=== PATIENT | male | born 1985 | race African-American/Black ===

== ENCOUNTER 2017-12-15 02:22 | Emergency (ER) | payer MEDICAID ==
[~2017-12-15] VITALS: Ht 172.7 cm; Wt 70.4 kg
[2017-12-15 03:24] VITALS: BP 129/73
== END 2017-12-15 03:28 | disposition home or self-care (01) ==
LOC: ER 02:24
DX: S80.211A Abrasion, right knee, initial encounter (principal); X58.XXXA Exposure to other specified factors, initial encounter; Y93.89 Activity, other specified; Y92.89 Other specified places as the place of occurrence of the external cause; Y99.8 Other external cause status
CPT/HCPCS: 82948; 99284